=== PATIENT | female | born 1935 | race Caucasian/White ===

== ENCOUNTER → 2019-08-14 | Outpatient (CLI) | payer MEDICARE ==
[~2019-08-14] MED LIST: AMPH20TA2 PO; AMPHETAMINE PO; APIX5TAB PO; FURO-93 PO; LISI40TA PO; LOSA100T14 PO; METO-264 PO; SPIR25TA PO; WARF-36 PO; WARF5TAB9 PO
[2019-08-14 15:41] LABS: ANION GAP 7 mmol/L (5-15); CALCIUM 9.5 mg/dL (8.5-10.1); CHLORIDE 104 mmol/L (98-107); CREATININE 1.08 mg/dL (0.55-1.02)
== END | disposition home or self-care (01) ==
LOC: CFH 11:57
PROVIDERS: ATTEND Internal Medicine Cardiovascular Disease
DX: I10 Essential (primary) hypertension (principal); I42.9 Cardiomyopathy, unspecified; I48.91 Unspecified atrial fibrillation
CPT/HCPCS: 36415; 80048

== ENCOUNTER 2019-08-20 14:41 | Observation (INO) | payer MEDICARE ==
[~2019-08-20] VITALS: Ht 160 cm; Wt 61.3 kg
--- NOTE | 2019-08-20 14:57 | NUR ---
PT WITH C/O DIZZINESS AND UNSTEADY GAIT, PT THINKS IT MAY BE D/T NEW BP MEDICATION LISINOPRIL. SHE STATES SHE HAS BEEN DIZZY AND INCREASINGLY CONFUSED. PT WITH NEG FOCAL NEURO DEFICIT, NO CP, SOB. PT TO CARD MONITOR, BP, CONT PULSE OX
[2019-08-20 15:23] LABS: BASOPHILS # (AUTO) 0.02 x10^3/uL (0-0.1); BASOPHILS % (AUTO) 0 % (0-1); EOSINOPHILS % (AUTO) 2 % (1-7); LYMPHOCYTES # (AUTO) 1.28 x10^3/uL (1-3.4); LYMPHOCYTES % (AUTO) 24 % (22-44); MD NO; MEAN CORPUSCULAR HEMOGLOBIN 30.6 pg (27.0-34.8); MEAN CORPUSCULAR HGB CONC 33.7 g/dL (32.4-35.8); MEAN CORPUSCULAR VOLUME 90.8 fL (80-100); MEAN PLATELET VOLUME 8.9 fL (7.4-10.4); MONOCYTES # (AUTO) 0.27 x10^3/uL (0.2-0.8); MONOCYTES % (AUTO) 5 % (2-9); NEUTROPHILS # (AUTO) 3.69 x10^3/uL (1.8-6.8); NEUTROPHILS % (AUTO) 69 % (42-75); PLATELET COUNT 194 x10^3/uL (130-400); RED BLOOD COUNT 4.62 x10^6/uL (3.82-5.3); RED CELL DISTRIBUTION WIDTH 13.7 % (9.6-15.2)
[2019-08-20 15:29] LABS: MICROSCOPIC NOT IND
[2019-08-20 15:31] LABS: ALANINE AMINOTRANSFERASE 30 U/L (12-78); ALBUMIN 3.8 g/dL (3.4-5.0); ANION GAP 8 mmol/L (5-15); CHLORIDE 102 mmol/L (98-107); CREATININE 1.29 mg/dL (0.55-1.02)
[2019-08-20 15:33] LABS: CULTURE INDICATED? NO
[2019-08-20 15:35] LABS: ALKALINE PHOSPHATASE 95 U/L (45-117); BILIRUBIN,TOTAL 0.5 mg/dL (0.2-1.0); TOTAL PROTEIN 7.1 g/dL (6.4-8.2); TROPONIN I < 0.015 ng/mL (0.000-0.045)
--- NOTE | 2019-08-20 15:51 | NUR ---
PT AMBULATED TO BR, INITIAL DIZZINESS UPON STANDING THEN PT WAS STEADY ON FEET. UA SAMPLE COLLECTED AND SENT TO LAB. PT NOW RESTING ON JOSH, FRIEND AT BEDSIDE, LIZZ VILLAR NOTED. PT TO BE ADMITTED, AWAITING BED PLACEMENT
[2019-08-20] MEDS ORDERED: ENOXAPARIN 30 MG/0.3 ML SQ SCH (17:00)
[2019-08-20] MEDS ORDERED: POTASSIUM CHLORIDE 20 MEQ TAB.ER.PRT PO ONE (17:00)
[2019-08-20] MEDS ORDERED: POLYETHYLENE GLYCOL 17 GM PACKET PO PRN (17:00)
[2019-08-20] MEDS ORDERED: DOCUSATE 100 MG CAPSULE PO PRN (17:00)
--- NOTE | 2019-08-20 17:21 | NUR ---
REPORT CALLED TO RECIEVING RN, WILL ESTABLISH PIV THEN TRANSPORT
[2019-08-20 18:09] VITALS: BP_SYST 109; BP_SYST 117; BP_DIAS 67; BP_DIAS 68
[2019-08-20 18:10] VITALS: BP 115/64
[2019-08-20] MEDS: SODIUM CHLORIDE 0.9% 1,000 ML IV SCH (18:38)
[2019-08-20 19:35] VITALS: BP 123/71
[2019-08-20] MEDS: APIXABAN 5 MG TABLET PO SCH (21:20)
[2019-08-20] MEDS: METOPROLOL SUCCINATE 50 MG TAB.ER.24H PO SCH (21:20)
[2019-08-20 22:13] LABS: AMPHETAMINE SCREEN, URINE Positive (Negative); BARBITURATE SCREEN, URINE Negative (Negative); BENZODIAZEPINE SCREEN, URINE Negative (Negative); CANNABINOID SCREEN, URINE Negative (Negative); COCAINE SCREEN, URINE Negative (Negative); METHADONE SCREEN, URINE Negative (Negative); OPIATE SCREEN, URINE Negative (Negative)
[2019-08-21] VITALS (7 sets, daily range): BP systolic 91–132; BP diastolic 51–63
[2019-08-21] MEDS: ACETAMINOPHEN 325 MG TABLET PO PRN ×2 (00:19→05:08)
[2019-08-21 05:22] LABS: ANION GAP 6 mmol/L (5-15); CALCIUM 8.2 mg/dL (8.5-10.1); CHLORIDE 106 mmol/L (98-107)
[2019-08-21 05:23] LABS: BASOPHILS # (AUTO) 0.01 x10^3/uL (0-0.1); BASOPHILS % (AUTO) 0 % (0-1); EOSINOPHILS % (AUTO) 2 % (1-7); LYMPHOCYTES % (AUTO) 19 % (22-44); MD NO; MEAN CORPUSCULAR HEMOGLOBIN 30.1 pg (27.0-34.8); MEAN CORPUSCULAR HGB CONC 32.9 g/dL (32.4-35.8); MEAN CORPUSCULAR VOLUME 91.6 fL (80-100); MEAN PLATELET VOLUME 9.1 fL (7.4-10.4); MONOCYTES % (AUTO) 6 % (2-9); NEUTROPHILS # (AUTO) 3.89 x10^3/uL (1.8-6.8); NEUTROPHILS % (AUTO) 74 % (42-75); PLATELET COUNT 151 x10^3/uL (130-400); RED BLOOD COUNT 4.15 x10^6/uL (3.82-5.3); RED CELL DISTRIBUTION WIDTH 13.6 % (9.6-15.2)
[2019-08-21] MEDS: SODIUM CHLORIDE 0.9% 1,000 ML IV SCH (06:41)
[2019-08-21] MEDS: APIXABAN 5 MG TABLET PO SCH (08:11)
[2019-08-21] MEDS: METOPROLOL SUCCINATE 50 MG TAB.ER.24H PO SCH (08:12)
[2019-08-21] MEDS ORDERED: FUROSEMIDE 20 MG TABLET PO SCH (09:00)
[2019-08-21] MEDS ORDERED: METO-93 PO (14:02)
[2019-08-21] MEDS ORDERED: METOPROLOL SUCCINATE 50 MG TAB.ER.24H PO SCH (21:00)
== END 2019-08-21 15:40 | disposition home or self-care (01) ==
LOC: ED 15:07 → EDIP 16:42 → INTOOBSV 16:42 → OBSVTOIN 16:42 → 4WST 17:56 → DCLOUNGE 08-21 15:29
PROVIDERS: ADMIT Family Medicine; ATTEND Family Medicine
DX: I95.2 Hypotension due to drugs (principal); R42 Dizziness and giddiness; E87.6 Hypokalemia; I11.0 Hypertensive heart disease with heart failure; I50.9 Heart failure, unspecified; J44.9 Chronic obstructive pulmonary disease, unspecified; I48.20 Chronic atrial fibrillation, unspecified; Z79.01 Long term (current) use of anticoagulants; Z87.891 Personal history of nicotine dependence; Z79.899 Other long term (current) drug therapy
CPT/HCPCS: 36415; 70450; 71045; 80048; 80053; 80307; 81003; 82140; 83605; 83735; 84484; 85025; 87040; 93005; 96360; 96361; 97162; 97165; 99284; G0378; J7030

== ENCOUNTER 2019-09-12 11:25 | Outpatient (CLI) | payer MEDICARE ==
[~2019-09-12 11:25] MED LIST changes: +METO-93 PO
[2019-09-12 13:12] LABS: BASOPHILS # (AUTO) 0.01 x10^3/uL (0-0.1); BASOPHILS % (AUTO) 0 % (0-1); EOSINOPHILS # (AUTO) 0.03 x10^3/uL (0-0.4); EOSINOPHILS % (AUTO) 1 % (1-7); LYMPHOCYTES # (AUTO) 1.05 x10^3/uL (1-3.4); LYMPHOCYTES % (AUTO) 24 % (22-44); MD NO; MEAN CORPUSCULAR HEMOGLOBIN 30.5 pg (27.0-34.8); MEAN CORPUSCULAR HGB CONC 33.9 g/dL (32.4-35.8); MEAN CORPUSCULAR VOLUME 89.8 fL (80-100); MEAN PLATELET VOLUME 9.5 fL (7.4-10.4); MONOCYTES # (AUTO) 0.34 x10^3/uL (0.2-0.8); MONOCYTES % (AUTO) 8 % (2-9); NEUTROPHILS % (AUTO) 68 % (42-75); PLATELET COUNT 192 x10^3/uL (130-400); RED BLOOD COUNT 4.06 x10^6/uL (3.82-5.3); RED CELL DISTRIBUTION WIDTH 14.8 % (9.6-15.2)
[2019-09-12 13:18] LABS: ANION GAP 6 mmol/L (5-15); CALCIUM 9.1 mg/dL (8.5-10.1); CHLORIDE 107 mmol/L (98-107); CREATININE 0.96 mg/dL (0.55-1.02)
== END 2019-09-12 23:59 | disposition home or self-care (01) ==
LOC: CFH 11:25
PROVIDERS: ATTEND Physician Assistant Medical
DX: I10 Essential (primary) hypertension (principal); I48.91 Unspecified atrial fibrillation; I42.9 Cardiomyopathy, unspecified
CPT/HCPCS: 36415; 80048; 85025

== ENCOUNTER → 2020-03-12 | Outpatient (CLI) | payer MEDICARE ==
[2020-03-12 16:08] LABS: ANION GAP 5 mmol/L (5-15); CALCIUM 9.7 mg/dL (8.5-10.1); CHLORIDE 109 mmol/L (98-107); CREATININE 1.01 mg/dL (0.55-1.02)
== END | disposition home or self-care (01) ==
LOC: CFH 13:26
PROVIDERS: ATTEND Physician Assistant Medical
DX: I34.0 Nonrheumatic mitral (valve) insufficiency (principal); I48.91 Unspecified atrial fibrillation
CPT/HCPCS: 36415; 80048; 93306